=== PATIENT | male | born 1965 | race Caucasian/White ===

== ENCOUNTER 2022-07-17 09:12 | Outpatient (CLI) | payer OTHER | END 2022-07-17 09:23 | disposition home or self-care (01) | LOC: LAB 09:12 | PROVIDERS: ATTEND Urology | DX: Z01.812 Encounter for preprocedural laboratory examination (principal) ==

== ENCOUNTER 2022-08-24 08:55 | Outpatient (CLI) | payer OTHER | END 2022-08-24 09:05 | disposition home or self-care (01) | LOC: RAD 08:55 | PROVIDERS: ATTEND Orthopaedic Surgery | DX: M25.561 Pain in right knee (principal) ==

== ENCOUNTER 2022-11-08 12:45 | Inpatient (IN) | payer OTHER ==
[~2022-11-08] VITALS: Ht 167.6 cm; Wt 76.2 kg
[2022-11-09] MEDS ORDERED: LIPITOR20 MG PO (13:21)
[2022-11-15] MEDS ORDERED: WIXELA 250-501 EACH (13:43)
[2022-11-15] MEDS ORDERED: GABAPENTIN100 M2 (13:43)
[2022-11-15] MEDS ORDERED: TESTOSTERO100 MG/1 M (13:43)
== END 2022-11-17 13:55 | disposition home or self-care (01) | DRG 470 ==
LOC: O/R 11-14 09:48 → SURH 11-14 12:45
PROVIDERS: ADMIT Orthopaedic Surgery; ATTEND Orthopaedic Surgery
PROC: 0SRC069 Replacement of Right Knee Joint with Oxidized Zirconium on Polyethylene Synthetic Substitute, Cemented, Open Approach (ICD-10-PCS; principal; 2022-11-14 13:45)
PROC: B54BZZZ Ultrasonography of Right Lower Extremity Veins (ICD-10-PCS; 2022-11-17)
DX: M17.11 Unilateral primary osteoarthritis, right knee (principal); M25.761 Osteophyte, right knee; R55 Syncope and collapse

== ENCOUNTER 2023-03-29 11:39 | Outpatient (CLI) | payer OTHER ==
[~2023-03-29 11:39] MED LIST: GABAPENTIN100 M2; LIPITOR20 MG PO; TESTOSTERO100 MG/1 M; WIXELA 250-501 EACH
== END 2023-03-29 11:48 | disposition home or self-care (01) ==
LOC: LAB 11:39
PROVIDERS: ATTEND Orthopaedic Surgery
DX: D64.89 Other specified anemias (principal); M06.4 Inflammatory polyarthropathy; M85.9 Disorder of bone density and structure, unspecified; E83.42 Hypomagnesemia; E56.1 Deficiency of vitamin K; M25.511 Pain in right shoulder; M25.512 Pain in left shoulder

== ENCOUNTER 2024-07-16 14:41 | Outpatient (CLI) | payer OTHER | END 2024-07-16 14:55 | disposition home or self-care (01) | LOC: RAD 14:41 | PROVIDERS: ATTEND Orthopaedic Surgery | DX: Q65.89 Other specified congenital deformities of hip (principal); M25.851 Other specified joint disorders, right hip; M25.852 Other specified joint disorders, left hip ==

== ENCOUNTER 2025-02-27 11:26 | Outpatient (CLI) | payer OTHER | END 2025-02-27 11:36 | disposition home or self-care (01) | LOC: RAD 11:26 | PROVIDERS: ATTEND Orthopaedic Surgery | DX: M16.0 Bilateral primary osteoarthritis of hip (principal); M17.0 Bilateral primary osteoarthritis of knee ==

== ENCOUNTER 2025-06-16 11:29 | Outpatient (CLI) | payer OTHER | END 2025-06-16 11:32 | disposition home or self-care (01) | LOC: RAD 11:29 | PROVIDERS: ATTEND Orthopaedic Surgery | DX: M16.0 Bilateral primary osteoarthritis of hip (principal) ==